=== PATIENT | male | born 1965 | race Hispanic/Latino ===

== ENCOUNTER 2021-12-22 10:23 | Emergency (ER) | payer OTHER ==
[~2021-12-22] VITALS: Ht 172.7 cm; Wt 81.6 kg
[2021-12-22] MEDS ORDERED: HYDROCODONE/APAP 10MG-325MG TAB PO ONE (10:45)
[2021-12-22] MEDS ORDERED: LIDOCAINE HCL 1% LOCAL INJ 20 ML VIAL INJ ONE (12:45)
[2021-12-22] MEDS ORDERED: Morphine 4mg Syringe 4 MG/ML INJ IV ONE (16:30)
[2021-12-22] MEDS ORDERED: PROPOFOL IV EMULSION 10 MG/ML 20 ML VIAL IV ONE (16:45)
[2021-12-22] MEDS ORDERED: KETAMINE HCL INJ 50 MG/ML 10 ML VIAL ONE (17:18)
[2021-12-22 17:19] VITALS: BP 187/115
[2021-12-22] MEDS ORDERED: ULTRACET TABLE1 EACH PO (17:57)
[2021-12-22] MEDS ORDERED: KETAMINE HCL INJ 50 MG/ML 10 ML VIAL IV ONE (18:15)
== END 2021-12-22 18:46 | disposition home or self-care (01) ==
LOC: ER 10:36
DX: S43.084A Other dislocation of right shoulder joint, initial encounter (principal); W01.0XXA Fall on same level from slipping, tripping and stumbling without subsequent striking against object, initial encounter; Y93.01 Activity, walking, marching and hiking; Y92.89 Other specified places as the place of occurrence of the external cause; I10 Essential (primary) hypertension
CPT/HCPCS: 23655; 73030; 73060; 73080; 73090; 73110; 73130; 73200; 99284; J2001; J2270; J2704